=== PATIENT | male | born 1980 | race Caucasian/White ===

== ENCOUNTER 2016-12-20 23:23 | Emergency (ER) | payer BC ==
[2016-12-20 23:37] VITALS: BP 151/106
--- NOTE | 2016-12-21 00:20 | EDM.PDOC ---
ED HPI GENERAL MEDICAL PROBLEM - General Chief Complaint: Upper Extremity Injury/Pain Stated Complaint: THINKS SHOULDER IS DISLOCATED Time Seen by Provider: 12/20/16 23:35 Source of Information: Reports: Patient History Limitations: Reports: No Limitations - History of Present Illness INITIAL COMMENTS - FREE TEXT/NARRATIVE: c/o pain to right shoulder after falling on curb while walking home from [place]. Limited movement. Denies other injury Right Shoulder Pain Score (Numeric/FACES): 8 - Related Data Allergies Allergy/AdvReac Type Severity Reaction Status Date / Time pollen extracts Allergy Difficulty Verified 12/20/16 23:38 Breathing Home Meds: Home Meds Lisinopril 10 mg PO DAILY 12/20/16 [History] Past Medical History Cardiovascular History: Reports: Hypertension - Past Surgical History HEENT Surgical History: Reports: Tonsillectomy Social & Family History - Tobacco Use Smoking Status *Q: Current Some Day Smoker Years of Tobacco use: 20 Packs/Tins Daily: 10 - Caffeine Use Caffeine Use: Reports: Coffee, Soda - Alcohol Use Date of Last Drink: 12/20/16 - Recreational Drug Use Recreational Drug Use: Yes Recreational Drug Type: Reports: Marijuana/Hashish Recreational Drug Use Frequency: Daily Recreational Drug Last Use: last drug use was 3 months ago Review of Systems - Review of Systems Review Of Systems: See Below Mouth/Throat: Reports: No Symptoms Respiratory: Reports: No Symptoms Cardiovascular: Reports: No Symptoms Musculoskeletal: Reports: Shoulder Pain Skin: Reports: No Symptoms Neurological: Reports: No Symptoms ED EXAM, GENERAL - Physical Exam Exam: See Below Exam Limited By: No Limitations General Appearance: Alert, Mild Distress (with movement) Eye Exam: Bilateral Eye: EOMI Nose: Normal Inspection Throat/Mouth: Normal Inspection Neck: Normal Inspection Respiratory/Chest: No Respiratory Distress, Lungs Clear Cardiovascular: Normal Peripheral Pulses, Regular Rate, Rhythm Extremities: Normal Capillary Refill, Limited Range of Motion, Other (right shoulder, no obvious deformity limited externol ROM. guarded internal. Able to remove shirt easily. no arm pain. ). No: Normal Range of Motion, Joint Swelling Neurological: Alert, Oriented, Normal Cognition Psychiatric: Other (Intoxicated) Skin Exam: Warm, Dry, Intact, Normal Color Course - Vital Signs Last Recorded V/S: Last Vital Signs Temp 97.2 F 12/20/16 23:25 Pulse 82 12/20/16 23:25 Resp 18 12/20/16 23:25 BP 151/106 H 12/20/16 23:25 Pulse Ox 97 12/20/16 23:25 - Radiology Interpretation Free Text/Narrative:: Right shoulder xray: AC separation Departure - Departure Time of Disposition: 00:16 Disposition: Home, Self-Care 01 Condition: Fair Clinical Impression: Acromioclavicular joint separation Qualifiers: Encounter type: initial encounter Laterality: right Qualified Code(s): S43.101A - Unspecified dislocation of right acromioclavicular joint, initial encounter - Discharge Information Instructions: Shoulder Pain, [place] Forms: ED Department Discharge Additional Instructions: ice to shoulder rest, immobilizer follow up with primary care for recheck alternate tylenol and ibuprofen for pain
== END 2016-12-21 00:31 | disposition home or self-care (01) ==
LOC: DL.ED 23:23
DX: S43.101A Unspecified dislocation of right acromioclavicular joint, initial encounter (principal); I10 Essential (primary) hypertension; F17.210 Nicotine dependence, cigarettes, uncomplicated; Z91.048 Other nonmedicinal substance allergy status; Z79.899 Other long term (current) drug therapy; Z98.890 Other specified postprocedural states; W18.30XA Fall on same level, unspecified, initial encounter
CPT/HCPCS: 73030-RT; 99283

== ENCOUNTER 2020-07-05 09:30 | Emergency (ER) | payer BC ==
[2020-07-05] MEDS ORDERED: Sodium Chloride 0.9% 10 ML Syringe FLUSH PRN (09:33)
[2020-07-05] MEDS ORDERED: HYDROmorphone 1 MG/ML Syringe IVPUSH ONE (09:42)
[2020-07-05] MEDS ORDERED: Ondansetron 4 MG/2 ML SDV IV ONE (09:43)
[2020-07-05 09:48] VITALS: BP 188/119; PULSE 83
[2020-07-05 10:18] LABS: ANION GAP 8.4 mEq/L (7-13); CHLORIDE,CL 102 mmol/L (98-107); SODIUM,NA 140 mmol/L (136-145)
--- NOTE | 2020-07-05 10:20 | CR ---
PROCEDURE INFORMATION: Exam: XR Chest, 2 Views Exam date and time: 07/05/2020 9:58 AM Age: 40 years old Clinical indication: Type not specified; Patient HX: Sharp severe pleuritic left chest pain, decreased breath sounds on left, smoker x 24 years; Additional info: Sudden onset left chest pain TECHNIQUE: Imaging protocol: XR of the chest Views: 2 views. COMPARISON: No relevant prior studies available. FINDINGS: Lungs: Unremarkable. No consolidation. Pleural spaces: Unremarkable. No pleural effusion. No pneumothorax. Heart/Mediastinum: Unremarkable. No cardiomegaly. Bones/joints: Unremarkable. IMPRESSION: No acute findings.
[2020-07-05 10:21] LABS: PTT,PARTIAL THROMBOPLSTIN TIME 28.9 SEC (22.0-34.0)
[2020-07-05] MEDS ORDERED: methylPREDNISolone Sodium Succinate 125 MG/2 ML SDV IVPUSH ONE (10:26)
--- NOTE | 2020-07-05 10:37 | EDM.PDOC ---
Scribed by Rachel Gerard 07/05/20 0956 for Dionna Dubose MD ED HPI GENERAL MEDICAL PROBLEM - General Chief Complaint: Chest Pain Stated Complaint: EXTREME CHEST PAINS SHORTNESS OF BREATH Time Seen by Provider: 07/05/20 09:36 Source of Information: Reports: Patient, RN, RN Notes Reviewed History Limitations: Reports: No Limitations - History of Present Illness INITIAL COMMENTS - FREE TEXT/NARRATIVE: Patient presents to ED by POV. Patient states he started about a week ago with sharp left chest pain. He sneezed last night, felt a pop in the left chest and had sudden severe sharp pain which became worse this morning. Pt states that breathing is very painful. The pain is worse with some movement, and with palpation. Nothing alleviates the pain. He has a history of hypertension. He rates his chest pain 9/10. He tried Naprosyn without relief. Denies fever, chills, cough, wheezing, shortness of breath, or hemoptysis. 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) (Naprosyn) - Related Data Allergies Allergy/AdvReac Type Severity Reaction Status Date / Time pollen extracts Allergy Difficulty Verified 07/05/20 10:02 Breathing Home Meds: Home Meds Lisinopril 10 mg PO DAILY 12/20/16 [History] hydroCHLOROthiazide [Hydrochlorothiazide] 25 mg PO DAILY 07/05/20 [History] Past Medical History Cardiovascular History: Reports: Hypertension - Past Surgical History HEENT Surgical History: Reports: Tonsillectomy Social & Family History - Family History Family Medical History: No Pertinent Family History - Tobacco Use Tobacco Use Status *Q: Current Every Day Tobacco User Tobacco Use Within Last Twelve Months: Cigarettes Years of Tobacco use: 24 - Caffeine Use Caffeine Use: Reports: Coffee, Soda - Living Situation & Occupation Occupation: Employed ED ROS GENERAL - Review of Systems Review Of Systems: Comprehensive ROS is negative, except as noted in HPI. ED EXAM, GENERAL - Physical Exam Exam: See Below Exam Limited By: No Limitations General Appearance: Alert, WD/WN, No Apparent Distress, Thin Eye Exam: Bilateral Eye: Normal Inspection Nose: Normal Inspection, Normal Mucosa, No Blood Throat/Mouth: Normal Lips, Normal Voice, No Airway Compromise Head: Atraumatic, Normocephalic Neck: Normal Inspection, Supple, Non-Tender, Full Range of Motion Respiratory/Chest: No Respiratory Distress, No Accessory Muscle Use, Decreased Breath Sounds, Splinting, Other (Reproducible left middle chest pain, no visible swelling, redness, bruising, or deformity.). No: Crackles, Rales, Rhonchi, Wheezing Cardiovascular: Normal Peripheral Pulses, Regular Rate, Rhythm, No Edema, No JVD, No Murmur GI/Abdominal: Normal Bowel Sounds, Soft, Non-Tender, No Organomegaly, No Distention, No Abnormal Bruit, No Mass Extremities: Normal Inspection, Non-Tender, No Pedal Edema, Normal Capillary Refill Neurological: Alert, Oriented, CN II-XII Intact, Normal Cognition, Normal Gait, No Motor/Sensory Deficits Psychiatric: Normal Affect, Normal Mood Skin Exam: Warm, Dry, Intact, Normal Color, No Rash. No: Cyanosis, Ecchymosis, Jaundice, Petechiae #1 Interpretation EKG Date: 07/05/20 Time: 09:43 Rhythm: Other (sinus rhythm) Rate (Beats/Min): 76 [place]: Normal P-Wave: Present QRS: Other (tiny anterolateral Q waves, probably due to LVH. LVH) ST-T: Normal QT: Normal Comparison: NA - No Prior EKG Course - Vital Signs Last Recorded V/S: Last Vital Signs Temp 97.9 F 07/05/20 09:46 Pulse 83 07/05/20 09:46 Resp 20 07/05/20 09:46 BP 188/119 H 07/05/20 09:46 Pulse Ox 99 07/05/20 09:46 - Orders/Labs/Meds Orders: Active Orders 24 hr Category Date Time Status EKG 12 Lead [EKG Documentation Completion] [RC] STAT Care 07/05/20 09:32 Active Peripheral IV Care [RC] . DIRECTED Care 07/05/20 09:34 Active Sodium Chloride 0.9% [Saline Flush] Med 07/05/20 09:33 Active 10 ml FLUSH ASDIRECTED PRN Peripheral IV Insertion Adult [OM.PC] Stat Oth 07/05/20 09:33 Ordered Medication Orders Sodium Chloride (Saline Flush) 10 ml FLUSH ASDIRECTED PRN PRN Reason: Keep Vein Open Last Admin: 07/05/20 09:55 Dose: 10 ml Documented by: JOSE Labs: Laboratory Tests 07/05/20 07/05/20 07/05/20 Range/Units 09:48 09:48 09:48 WBC 9.8 (5.0-10.0) 10^3/uL RBC 4.65 (4.6-6.2) 10^6/uL Hgb 14.5 (14.0-18.0) g/dL Hct 41.6 (40.0-54.0) % MCV 89.5 (80-100) fL MCH 31.2 (27.0-34.0) pg MCHC 34.9 (33.0-35.0) g/dL Plt Count 284 (150-450) 10^3/uL Neut % (Auto) 71.8 (42.2-75.2) % Lymph % (Auto) 20.7 (20.5-50.1) % [place] % (Auto) 6.3 (2-8) % Eos % (Auto) 0.9 L (1.0-3.0) % Baso % (Auto) 0.3 (0.0-1.0) % PT 9.9 (9.0-12.0) SEC INR 1.0 (0.9-1.2) APTT 28.9 (22.0-34.0) SEC D-Dimer, Quantitative (0-400) ng/mL Sodium 140 (136-145) mmol/L Potassium 3.4 L (3.5-5.1) mmol/L Chloride 102 (98-107) mmol/L Carbon Dioxide 33 H (21-32) mmol/L Anion Gap 8.4 (7-13) mEq/L BUN 11 (7-18) mg/dL Creatinine 0.78 (0.70-1.30) mg/dL Est Cr Clr Drug Dosing 145.16 mL/min Estimated GFR (MDRD) > 60 BUN/Creatinine Ratio 14.1 (No establ ref range) Glucose 130 H (74-99) mg/dL Calcium 8.6 (8.5-10.1) mg/dL Total Bilirubin 1.0 (0.2-1.0) mg/dL AST 14 L (15-37) U/L ALT 25 (16-63) U/L Alkaline Phosphatase 109 (46-116) U/L Troponin I < 0.017 (0.000-0.056) ng/mL C-Reactive Protein < 0.2 (0.0-0.9) mg/dL Total Protein 7.7 (6.4-8.2) g/dL Albumin 4.5 (3.4-5.0) g/dL Globulin 3.2 Albumin/Globulin Ratio 1.4 Amylase 45 (25-115) U/L Lipase 57 L (73-393) U/L 07/05/20 Range/Units 09:48 WBC (5.0-10.0) 10^3/uL RBC (4.6-6.2) 10^6/uL Hgb (14.0-18.0) g/dL Hct (40.0-54.0) % MCV (80-100) fL MCH (27.0-34.0) pg MCHC (33.0-35.0) g/dL Plt Count (150-450) 10^3/uL Neut % (Auto) (42.2-75.2) % Lymph % (Auto) (20.5-50.1) % [place] % (Auto) (2-8) % Eos % (Auto) (1.0-3.0) % Baso % (Auto) (0.0-1.0) % PT (9.0-12.0) SEC INR (0.9-1.2) APTT (22.0-34.0) SEC D-Dimer, Quantitative < 100 (0-400) ng/mL Sodium (136-145) mmol/L Potassium (3.5-5.1) mmol/L Chloride (98-107) mmol/L Carbon Dioxide (21-32) mmol/L Anion Gap (7-13) mEq/L BUN (7-18) mg/dL Creatinine (0.70-1.30) mg/dL Est Cr Clr Drug Dosing mL/min Estimated GFR (MDRD) BUN/Creatinine Ratio (No establ ref range) Glucose (74-99) mg/dL Calcium (8.5-10.1) mg/dL Total Bilirubin (0.2-1.0) mg/dL AST (15-37) U/L ALT (16-63) U/L Alkaline Phosphatase (46-116) U/L Troponin I (0.000-0.056) ng/mL C-Reactive Protein (0.0-0.9) mg/dL Total Protein (6.4-8.2) g/dL Albumin (3.4-5.0) g/dL Globulin Albumin/Globulin Ratio Amylase (25-115) U/L Lipase (73-393) U/L Meds: Medications Generic Name Dose Route Start Last Admin Trade Name Freq PRN Reason Stop Dose Admin Sodium Chloride 10 ml 07/05/20 09:33 07/05/20 09:55 Saline Flush FLUSH 10 ml ASDIRECTED PRN Administration Keep Vein Open Discontinued Medications Generic Name Dose Route Start Last Admin Trade Name Freq PRN Reason Stop Dose Admin Hydromorphone HCl 1 mg 07/05/20 09:42 07/05/20 09:54 Dilaudid IVPUSH 07/05/20 09:43 1 mg ONETIME ONE Administration Methylprednisolone Sodium Succinate 125 mg 07/05/20 10:26 Solu-Medrol IVPUSH 07/05/20 10:27 ONETIME ONE Ondansetron HCl 4 mg 07/05/20 09:43 07/05/20 09:54 Zofran IV 07/05/20 09:44 4 mg ONETIME ONE Administration - Radiology Interpretation Free Text/Narrative:: [facility] Final Radiology Report Call: [phone] assistance Online chat: [email or web address] Name: CODIE JIN Age: 40Years M Date: 07/05/2020 SSN: -- : [id number] Study: CR CHEST 2V Requesting Physician: DIONNA DUBOSE Images: 3 Addl Studies: Provided Clinical History: sudden onset left chest pain Contrast: Contrast Medium: Contrast Amount: Contrast Method: CONFIDENTIALITY STATEMENT This report is intended only for use by the referring physician, and only in accordance with law. If you received this in error, call [phone]. Page 1 of 1 PROCEDURE INFORMATION: Exam: XR Chest, 2 Views Exam date and time: 07/05/2020 9:58 AM Age: 40 years old Clinical indication: Type not specified; Patient HX: Sharp severe pleuritic left chest pain, decreased breath sounds on left, smoker x 24 years; Additional info: Sudden onset left chest pain TECHNIQUE: Imaging protocol: XR of the chest Views: 2 views. COMPARISON: No relevant prior studies available. FINDINGS: Lungs: Unremarkable. No consolidation. Pleural spaces: Unremarkable. No pleural effusion. No pneumothorax. Heart/Mediastinum: Unremarkable. No cardiomegaly. Bones/joints: Unremarkable. IMPRESSION: No acute findings. Thank you for allowing us to participate in the care of your patient. Dictated and Authenticated by: Joseph Bermudez MD 07/05/2020 10:20 AM Central Time ([place] & [place]) Departure - Departure Time of Disposition: 10:32 Disposition: Home, Self-Care 01 Condition: Good Clinical Impression: Pleurisy, Tobacco dependence due to cigarettes Instructions: Pleurisy, Chronic Obstructive Pulmonary Disease Forms: ED Department Discharge Additional Instructions: Rx: Prednisone 20mg *Take with a meal. Rx: Hydrocodone APAP 5mg/325mg *Do not drive while under the influence of this medication. Deep breathing, and use incentive spirometer once every hour while awake. Quit smoking. Avoid cold, dry air as much as possible for the next several days. Follow up in clinic if not improving by . Sepsis Event Note (ED) - Focused Exam Vital Signs: Vital Signs Temp Pulse Resp BP Pulse Ox 07/05/20 09:46 97.9 F 83 20 188/119 H 99 - My Orders Last 24 Hours: My Active Orders 07/05/20 09:32 EKG 12 Lead [EKG Documentation Completion] [RC] STAT 07/05/20 09:33 Sodium Chloride 0.9% [Saline Flush] 10 ml FLUSH ASDIRECTED PRN Peripheral IV Insertion Adult [OM.PC] Stat 07/05/20 09:34 Peripheral IV Care [RC] . DIRECTED - Assessment/Plan Last 24 Hours: My Active Orders 07/05/20 09:32 EKG 12 Lead [EKG Documentation Completion] [RC] STAT 07/05/20 09:33 Sodium Chloride 0.9% [Saline Flush] 10 ml FLUSH ASDIRECTED PRN Peripheral IV Insertion Adult [OM.PC] Stat 07/05/20 09:34 Peripheral IV Care [RC] . DIRECTED I have read and agree with the documentation that has been completed regarding this visit. By signing this record, I attest that the documentation was completed in my physical presence and is an accurate record of the encounter.
== END 2020-07-05 10:54 | disposition home or self-care (01) ==
LOC: DL.ED 09:30
DX: R09.1 Pleurisy (principal); F17.210 Nicotine dependence, cigarettes, uncomplicated; I10 Essential (primary) hypertension; Z79.899 Other long term (current) drug therapy; Z91.048 Other nonmedicinal substance allergy status
CPT/HCPCS: 36415; 71046; 80053; 82150; 83690; 84484; 85025; 85379; 85610; 85730; 86140; 93005; 94010; 96374; 96375; 99284; J1170; J2405; J2930; 93010